=== PATIENT | female | born 1965 | race Caucasian/White ===

== ENCOUNTER 2017-06-08 12:37 | Inpatient (IN) | payer SELFPAY ==
[~2017-06-08] VITALS: Ht 154.9 cm; Wt 72.6 kg
[2017-06-08 13:49] LABS: APPEARANCE HAZY (CLEAR); BILIRUBIN NEGATIVE (NEGATIVE); COLOR YELLOW (YELLOW); EPITHELIAL CELLS 0-5 /hpf (0-5); GLUCOSE NEGATIVE (NEGATIVE); KETONE NEGATIVE (NEGATIVE); LEUKOCYTE ESTERASE TRACE (NEGATIVE); NITRITE NEGATIVE (NEGATIVE); PROTEIN NEGATIVE (NEGATIVE); RED CELLS - URINE OCC /hpf (0-5); SPECIFIC GRAVITY 1.015 (1.005-1.020); UROBILINOGEN NORMAL (NORMAL)
[2017-06-08 13:50] LABS: AMORPHOUS SEDIMENT <1+ /lpf (NONE SEEN); BACTERIA MODERATE /hpf (NONE SEEN); MUCUS <1+ /lpf (NONE SEEN)
[2017-06-08 13:58] LABS: BASOPHILS 0.2 % (0-2); EOSINOPHILS 0.1 % (0-7); HEMATOCRIT 41.6 % (36.0-48.0); HEMOGLOBIN 15.2 g/dL (12-16); IMMATURE GRANULOCYTES 0.1 % (0-5); LYMPHOCYTES 14.6 % (15-50); MCH 31.9 pg (26.0-34.0); MCHC 36.5 g/dL (31.0-37.0); MCV 87.2 fL (80.0-100.0); MEAN PLATELET VOLUME 9.3 fL (7.4-10.4); MONOCYTES 5.9 % (2-11); NEUTROPHILS 79.1 % (40-80); PLATELET COUNT 159 10x3/uL (130-400); RBC 4.77 10x6/uL (4.00-5.40); RDW 12.2 % (11.5-14.5); WBC 14.2 10x3/uL (4.8-10.8)
[2017-06-08 14:01] LABS: INR 0.95 (0.85-1.17); PROTIME 12.5 SECONDS (11.6-15.0)
[2017-06-08 14:06] LABS: ALBUMIN 2.9 g/dL (3.4-5.0); ALKALINE PHOSPHATASE 115 U/L (46-116); ALT (SGPT) 63 U/L (10-68); BILIRUBIN - TOTAL 0.55 mg/dL (0.2-1.3); CALC OSMOLALITY 280 mosm/kg (275-300); CALCIUM 8.5 mg/dL (8.5-10.1); CARBON DIOXIDE 28.4 mmol/L (21.0-32.0); CHLORIDE - SERUM 100 mmol/L (98-107); CREATININE - SERUM 0.9 mg/dL (0.6-1.3); GLUCOSE 194 mg/dL (74-106); POTASSIUM - SERUM 3.9 mmol/L (3.5-5.1); PROTEIN - SERUM 7.1 g/dL (6.4-8.2); SODIUM 138 mmol/L (136-145); UREA NITROGEN 12 mg/dL (7-18); eGFR NON AFRICAN AMERICAN 70 mL/min (90-120)
[2017-06-08 14:10] LABS: MAGNESIUM - SERUM 1.6 mg/dL (1.8-2.4)
[2017-06-08 14:12] LABS: TROPONIN-I < 0.017 ng/mL (0.000-0.060)
[2017-06-08 19:00] VITALS: BP 103/49
[2017-06-08] MEDS ORDERED: NUPRIN200 MG PO (19:45)
--- NOTE | 2017-06-08 19:45 | NUR ---
PT ARRIVED TO ROOM 2109 WITH FAMILY AT BEDSIDE. PT HAS NS INFUSING AT 20 TO LEFT AC. PT DENIES ANY NEEDS. WILL CPOC
--- NOTE | 2017-06-08 19:46 | NUR ---
PT IN ROOM. IV INFUSING TO LEFT AC AT 100. PT C/O FEVER AND LOWER BACK PAIN, DAUGHTER HELPS TRANSLATE BECAUSE PT SPEAKS ONLY LITTLE UKRAINIAN. DR IN ROOM. STATES IT MAY BE KIDNEY INFECTION. PT AAO. FAMILY IN ROOM. NO NEEDS. NO S/S OF DISTRESS. WILL CPOC
--- NOTE | 2017-06-08 23:07 | NUR ---
PT C/O NAUSEA. PT DENIES PAIN. WILL SPEAK WITH [employer] FOR A TRANSLATION PHONE. IF DAUGHTER LEAVES THAN I WORRY OF A COMMUNICATION BARRIER. PT ONLY SPEAKS A LITTLE BRUNEIAN. PT DENIES ANY NEEDS. NO S/S OF DISTRESS. WILL CPOC
[2017-06-09] VITALS (7 sets, daily range): BP systolic 92–110; BP diastolic 45–72; Ht 154.9 cm; Wt 72.6 kg
--- NOTE | 2017-06-09 07:15 | NUR ---
RECIEVED REPORT ON PATIENT, PATIENT IS ALERT AND ORIENTED. PATIENT SPEAKS LITTLE GEORGIAN, TRANSLATION PHONE AT BEDSIDE. PATIENT HAS A L AC IV THAT IS INFILTRATED. IV DC WITH CATH TIP INTACT, 20G IV STARTED TO R FA AND NS IS INFUSING AT 100ML/HR. WILL CONT TO MONITOR PATIENT. CPOC
--- NOTE | 2017-06-09 07:30 | NUR ---
PATIENT LACTIC ACID IS 2.5, PATIENT IS HYPOTENSIVE, WBC IS 14.2, 1000ML NS BOLUS GIVEN PER SEPSIS PROTOCOL. WILL MONITOR PATIENT. CPOC
--- NOTE | 2017-06-09 09:00 | NUR ---
PATIENT DAUGHTER AT BEDSIDE VISITING. PATIENT DENIES ANY NEEDS. CPOC
--- NOTE | 2017-06-09 11:00 | NUR ---
TYLENOL GIVEN FOR ABDOMEN PAIN 11/26. WILL CONT TO MONITOR
--- NOTE | 2017-06-09 11:30 | NUR ---
PATIENT SITTING UP IN BED, EATING LUNCH. DENIES ANY NEEDS. CPOC
--- NOTE | 2017-06-09 13:00 | NUR ---
PATIENT LACTIC ACID CAME BACK AT 3.0 NOTIFIED BASSAM MUELLER, AND SHE STATED WOULD MONITOR. ASKED IF SHE WANTED ME TO GIVE BOLUS AND SHE STATED NO NOT AT THIS TIME. CPOC
--- NOTE | 2017-06-09 14:45 | NUR ---
PATIENT RESTING, AROUSES TO VOICE DENIES ANY PAIN. WILL CONT TO MONITOR
--- NOTE | 2017-06-09 17:42 | NUR ---
PATIENT SITTING UP IN BED EATING DINNER. DENIES ANY NEEDS. C/O OF MILD BACK PAIN, GOING TO WALK AROUND AND SEE IF THAT HELPS, IF NOT PATIENT STATED SHE WILL LET ME KNOW. CPOC
--- NOTE | 2017-06-09 19:15 | NUR ---
Received patient resting in bed, alert and oriented x 4 according to her daughter (who speaks French well). Family visiting at this time. PIV in right forearm is infusing NS @100ml/hr. Denies any pain or discomfort at this time.
--- NOTE | 2017-06-09 21:15 | NUR ---
Continues visiting with family, smiling and laughing, no signs of distress. IV infusing. Respirations unlabored.
--- NOTE | 2017-06-10 00:30 | NUR ---
In bed with eyes closed, respirations easy and regular, deemed to be sleeping.
--- NOTE | 2017-06-10 03:41 | NUR ---
Continues sleeping, no signs of distress.
[2017-06-10 04:00] VITALS: BP 98/69
--- NOTE | 2017-06-10 07:28 | NUR ---
PT LAYING TO LEFT SIDE SLEEPING, ARROUSES EASILY DENIES NEEDS WILL CONT TO MONITOR
[2017-06-10 08:00] VITALS: BP 90/43
[2017-06-10 12:00] VITALS: BP 122/59
--- NOTE | 2017-06-10 12:38 | NUR ---
DAUGHTER AT BEDSIDE. DENIES NEEDS
[2017-06-10 12:58] LABS: BASOPHILS 0.2 % (0-2); EOSINOPHILS 1.6 % (0-7); HEMATOCRIT 36.4 % (36.0-48.0); HEMOGLOBIN 12.8 g/dL (12-16); IMMATURE GRANULOCYTES 0.6 % (0-5); MCH 31.2 pg (26.0-34.0); MCHC 35.2 g/dL (31.0-37.0); MCV 88.8 fL (80.0-100.0); MEAN PLATELET VOLUME 9.3 fL (7.4-10.4); MONOCYTES 6.6 % (2-11); PLATELET COUNT 162 10x3/uL (130-400); RDW 12.7 % (11.5-14.5)
[2017-06-10 12:59] LABS: WBC 6.3 10x3/uL (4.8-10.8)
[2017-06-10 13:04] LABS: CALC OSMOLALITY 283 mosm/kg (275-300); CALCIUM 8.1 mg/dL (8.5-10.1); CARBON DIOXIDE 28.1 mmol/L (21.0-32.0); CHLORIDE - SERUM 105 mmol/L (98-107); CREATININE - SERUM 0.7 mg/dL (0.6-1.3); GLUCOSE 183 mg/dL (74-106); POTASSIUM - SERUM 3.8 mmol/L (3.5-5.1); SODIUM 139 mmol/L (136-145); UREA NITROGEN 14 mg/dL (7-18); eGFR NON AFRICAN AMERICAN > 90 mL/min (90-120)
[2017-06-10 15:47] LABS: HEMOGLOBIN A1C 8.6 % (4.8-6.0)
[2017-06-10 16:00] VITALS: BP 117/65
--- NOTE | 2017-06-10 17:59 | NUR ---
PT SITTING UP IN BED FAMILY AT BEDSDIE DENIES NEEDS
--- NOTE | 2017-06-10 19:21 | NUR ---
RECEIVED REPORT, WILL ASSUME CARE OF PT, PT DENIES ANY NEEDS AT THIS TIME, PT EATING AND VISITING WITH FAMILY, BED IS LOW, SRX2, CALL LIGHT IN REACH, WILL CONTINUE PLAN OF CARE
[2017-06-10 20:00] VITALS: BP 120/67
--- NOTE | 2017-06-10 20:33 | NUR ---
BLOODSUGAR 214- GAVE 4 UNITS OF HUMALOG
[2017-06-11] VITALS: BP 91/47
--- NOTE | 2017-06-11 02:08 | NUR ---
PT RESTING WELL WITHOUT C/O OR DISTRESS NOTED. CALL LIGHT WITHIN REACH. WILL CONT TO MONITOR.
[2017-06-11 04:00] VITALS: BP 92/55
[2017-06-11 05:50] LABS: BASOPHILS 0.2 % (0-2); EOSINOPHILS 1.2 % (0-7); HEMATOCRIT 35.5 % (36.0-48.0); HEMOGLOBIN 12.6 g/dL (12-16); IMMATURE GRANULOCYTES 0.7 % (0-5); LYMPHOCYTES 47.6 % (15-50); MCH 31.3 pg (26.0-34.0); MCHC 35.5 g/dL (31.0-37.0); MCV 88.3 fL (80.0-100.0); MEAN PLATELET VOLUME 9.3 fL (7.4-10.4); MONOCYTES 7.2 % (2-11); NEUTROPHILS 43.1 % (40-80); PLATELET COUNT 156 10x3/uL (130-400); RBC 4.02 10x6/uL (4.00-5.40); RDW 12.6 % (11.5-14.5); WBC 6.1 10x3/uL (4.8-10.8)
[2017-06-11 05:58] LABS: CALC OSMOLALITY 281 mosm/kg (275-300); CALCIUM 8.1 mg/dL (8.5-10.1); CARBON DIOXIDE 28.5 mmol/L (21.0-32.0); CHLORIDE - SERUM 107 mmol/L (98-107); CREATININE - SERUM 0.7 mg/dL (0.6-1.3); GLUCOSE 175 mg/dL (74-106); POTASSIUM - SERUM 4.3 mmol/L (3.5-5.1); SODIUM 139 mmol/L (136-145); UREA NITROGEN 13 mg/dL (7-18); eGFR NON AFRICAN AMERICAN > 90 mL/min (90-120)
--- NOTE | 2017-06-11 07:29 | NUR ---
AM ROUND- RECIEVED REPORT FROM FIRST AID OFFICER NURSE DEANNE. PT IS CURRENTLY LAYING ON LEFT SIDE WITH EYES CLOSED RESTING. ON ROOM AIR. NO MONITOR. IV SEEN TO RIGHT FOREARM WITH NS RUNNING AT 100CC. NO NEED AT THIS CURRENT TIME. WILL CONTINUE TO MONITOR AND CONTINUE WITH PLAN OF CARE.
[2017-06-11 08:21] VITALS: BP 127/62
[2017-06-11 12:19] VITALS: BP 136/73
--- NOTE | 2017-06-11 12:19 | NUR ---
DIABETIC EDU PROVIDED PT WITH BASIC DM DIET EDU IN [employer]. SON IN ROOM TO TRANSLATE. DTR ARRIVED LATER. ANSWERED QUESTIONS AND PROVIDED RD NAME AND CONTACT INFO. RD FOLLOWING
--- NOTE | 2017-06-11 12:50 | NUR ---
PTS IV TO RIGHT FOREARM IS SWOLLEN AND PER PT PAINFUL. THIS NURSE REMOVED PTS IV TO RIGHT FOREARM. COVERED SITE WITH 2X2 GAUZE PADS AND SECURED WITH TAPE. PTS DAUGHTER STATES SHE IS BEING D/C. WILL AWAIT D/C ORDERS.
[2017-06-11] MEDS ORDERED: GLUCOPHAGE500 MG PO (13:27)
[2017-06-11] MEDS ORDERED: LEVAQUIN500 MG PO (13:27)
[2017-06-11] MEDS ORDERED: FLORAJEN3 CAPS460 MG PO (13:27)
--- NOTE | 2017-06-11 15:21 | NUR ---
D/C INSTRUCTIONS EXPLAINED TO PT AND SISTER. D/C INSTRUCTIONS EXPLAINED TO PT AND PLACED IN CHART. PT D/C VIA WHEELCHAIR.
== END 2017-06-11 15:24 | disposition home or self-care (01) | DRG 690 ==
LOC: D.ER 12:37 → D.M2 18:06
PROVIDERS: Emergency Medicine; Nurse Practitioner Family; ADMIT Family Medicine
DX: N10 Acute pyelonephritis (principal); E11.65 Type 2 diabetes mellitus with hyperglycemia; Z85.42 Personal history of malignant neoplasm of other parts of uterus